=== PATIENT | female | born 1990 | race Caucasian/White ===

== ENCOUNTER 2020-10-17 09:22 | Emergency (ER) | payer OTHER ==
[2020-10-17 10:22] LABS: Absolute Neutrophil Ct (ANC) 0.92 (1.4-6.9); Basophil (Absolute #) 0 (0-0.4); Eosinophil % 0.5 % (0.00-5.0); Eosinophil (Absolute #) 0.01 (0-0.5); Hematocrit 39.7 % (35-47); Hemoglobin 13.1 gm/dl (12.0-16.0); Lymphocyte (Absolute #) 0.75 (1.0-4.6); Lymphocytes % 35.4 % (24.0-44.0); Mean Cell Volume 86.1 fl (78-100); Mean Corpuscular Hemoglobin 28.4 pg (26-32); Mean Platelet Volume 10.5 fl (7.5-11.0); Monocyte (Absolute #) 0.44 (0.0-1.3); Monocytes % 20.8 % (0.0-12.0); Neutrophil % 43.3 % (36.0-66.0); Platelet Count 120 K/mm3 (150-450); Red Blood Count 4.61 M/mm3 (4.1-5.4); Red Cell Distribution Width 13.8 % (11.5-14.0); White Blood Count 2.1 K/mm3 (4.0-10.5)
--- NOTE | 2020-10-17 10:23 | ERPHSYRPT ---
- History of Present Illness Source: patient Exam Limitations: no limitations Patient Subjective Stated Complaint: Cough Triage Nursing Assessment: Patient ambulated back to ED and transferred self to bed. Patient A+O X3. Patient's skin flushed, warm and dry. Patient complains of fever, cough, SOB, bodyaches, headache, Nausea and fatigue for one day. Patient's lung clear a/p rod. Bodyaches constant 5/10 aching pain. Physician History: 30 yo unvaccinated WF w ABAD/cough/coryza/mild ST/borderline fever x 1 day. Covid exposure at work. She denies N/V/D/dysuria/hematuria/. Timing/Duration: yesterday Possible Cause: no prior episodes Modifying Factors: Improves With: coughing Associated Symptoms: fever, cough, headache, nasal congestion, nasal drainage, sore throat, No chills, No chest pain/soreness, No dizziness, No earache, No fac ial pain, No lightheadedness, No muscle aches, No shortness of breath, No sinus infection Allergies/Adverse Reactions: No Known Drug Allergies Allergy (Verified 10/17/ 09:30) Hx Tetanus, Diphtheria Vaccination/Date Given: Yes Hx Influenza Vaccination/Date Given: Yes Hx Pneumococcal Vaccination/Date Given: No Immunizations Up to Date: Yes Travel Risk - International Travel Have you traveled outside of the country in past 3 weeks: No - Coronavirus Screening Are you exhibiting any of the following symptoms?: Yes Symptoms: Fever Close contact with a COVID-19 positive Pt in past 14-21 Days: Yes - Vaccine Status Have you recieved a Covid-19 vaccination: No - Review of Systems Constitutional: No Symptoms, Fever, Chills Eyes: No Symptoms Ears, Nose, & Throat: No Symptoms, Nose Congestion, Nose Discharge Respiratory: No Symptoms, Cough Cardiac: No Symptoms Abdominal/Gastrointestinal: No Symptoms Genitourinary Symptoms: No Symptoms Musculoskeletal: No Symptoms Skin: No Symptoms Neurological: No Symptoms Psychological: No Symptoms Endocrine: No Symptoms Hematologic/Lymphatic: No Symptoms - Past Medical History Pertinent Past Medical History: No Neurological History: No Pertinent History ENT History: No Pertinent History Cardiac History: No Pertinent History Respiratory History: No Pertinent History Endocrine Medical History: No Pertinent History Musculoskeletal History: No Pertinent History GI Medical History: No Pertinent History History: No Pertinent History Psycho-Social History: No Pertinent History Female Reproductive Disorders: No Pertinent History - Past Surgical History Past Surgical History: Yes Neuro Surgical History: No Pertinent History Cardiac: No Pertinent History Respiratory: No Pertinent History Gastrointestinal: No Pertinent History Genitourinary: No Pertinent History Musculoskeletal: No Pertinent History Female Surgical History: Section, Tubal Ligation Other Surgical History: previous c/s - Social History Smoking Status: Never smoker Exposure to second hand smoke: No Drug Use: none Patient Lives Alone: No Significant Family History: no pertinent family hx - Female History Hx Now: No - Nursing Vital Signs Nursing Vital Signs: Initial Vital Signs Temperature 100.3 F 10/17/20 09:30 Pulse Rate 96 H 10/17/20 09:30 Respiratory Rate 18 10/17/20 09:30 Blood Pressure 137/89 10/17/20 09:30 O2 Sat by Pulse Oximetry 98 10/17/20 09:30 Pain Scale Pain Intensity 5 Borderline fever - Physical Exam General Appearance: no apparent distress Eye Exam: PERRL/EOMI, eyes nml inspection, No scleral icterus Ears, Nose, Throat Exam: normal ENT inspection, TMs normal, pharynx normal, moist mucous membranes Neck Exam: normal inspection, non-tender, supple, full range of motion, No meningismus, No mass, No Brudzinski, No Kernig's Respiratory Exam: normal breath sounds, lungs clear, airway intact, No res piratory distress Cardiovascular Exam: regular rate/rhythm, normal heart sounds, normal peripheral pulses, No murmur Gastrointestinal/Abdomen Exam: soft, normal bowel sounds, No tenderness Back Exam: normal inspection, normal range of motion, CVA tenderness Extremity Exam: normal inspection, normal range of motion Neurologic Exam: alert, oriented x 3, cooperative, 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, normal mood/affect, nml station & gait, sensation nml, No motor deficits, No sensory deficit Skin Exam: normal color, warm, dry Lymphatic Exam: No adenopathy SpO2 Interpretation: normal SpO2: 99 O2 Delivery: Room Air - Radiology Exams Chest X-ray Interpretation: Discussed w/ radiologist (CXR neg) Ordered Tests: Active Orders 24 hr Category Date Time Status CHEST 1 VIEW (PORTABLE) Stat Exams 10/17/20 09:52 Completed CBC W DIFF Stat Lab 10/17/20 10:00 Completed CMP Stat Lab 10/17/20 10:00 Completed INFLUENZA A+B THOMAS Stat Lab 10/17/20 10:10 Completed Lactic Acid Stat Lab 10/17/20 09:52 Completed Medication Summary Discontinued Medications Generic Name Dose Route Start Last Admin Trade Name Elizabeth PRN Reason Stop Dose Admin Dexamethasone Sodium Phosphate 10 mg 10/17/20 10:59 10/17/20 11:16 Decadron 10mg Inj. IV 10/17/20 11:00 10 mg STAT ONE Administration Dexamethasone Sodium Phosphate Confirm 10/17/20 11:14 Decadron 10mg Inj. Administered 10/17/20 11:15 Dose 10 mg .ROUTE .STInformed Trades-MED ONE Lab/Rad Data: Laboratory Result Diagrams 10/17/20 10:00 10/17/20 10:00 Laboratory Results 10/17/20 10/17/20 10/17/20 Range/Units 10:10 10:00 10:00 WBC 2.1 L (4.0-10.5) K/mm3 RBC 4.61 (4.1-5.4) M/mm3 Hgb 13.1 (12.0-16.0) gm/dl Hct 39.7 (35-47) % MCV 86.1 (78-100) fl MCH 28.4 (26-32) pg MCHC 33.0 (32-36) g/dl RDW 13.8 (11.5-14.0) % Plt Count 120 L (150-450) K/mm3 MPV 10.5 (7.5-11.0) fl Gran % 43.3 (36.0-66.0) % Eos # (Auto) 0.01 (0-0.5) Absolute Lymphs (auto) 0.75 L (1.0-4.6) Absolute Monos (auto) 0.44 (0.0-1.3) Lymphocytes % 35.4 (24.0-44.0) % Monocytes % 20.8 H (0.0-12.0) % Eosinophils % 0.5 (0.00-5.0) % Basophils % 0.0 (0.0-0.4) % Absolute Granulocytes 0.92 L (1.4-6.9) Basophils # 0 (0-0.4) Sodium 137 (137-145) mmol/L Potassium 3.9 (3.5-5.1) mmol/L Chloride 103 (98-107) mmol/L Carbon Dioxide 22 (22-30) mmol/L Anion Gap 15.7 H (5-15) MEQ/L BUN 6 L (7-17) mg/dL Creatinine 0.77 (0.52-1.04) mg/dL Estimated GFR > 60.0 ML/MIN Glucose 90 (74-106) mg/dL Lactic Acid (0.4-2.0) Calcium 9.1 (8.4-10.2) mg/dL Total Bilirubin 0.50 (0.2-1.3) mg/dL AST 33 (14-36) U/L ALT 22 (0-35) U/L Alkaline Phosphatase 62 (38-126) U/L Serum Total Protein 7.2 (6.3-8.2) g/dL Albumin 4.4 (3.5-5.0) g/dL Influenza Type A Ag NEGATIVE (NEGATIVE) Influenza Type B Ag NEGATIVE (NEGATIVE) Slides for Path Review YES 10/17/20 Range/Units 09:52 WBC (4.0-10.5) K/mm3 RBC (4.1-5.4) M/mm3 Hgb (12.0-16.0) gm/dl Hct (35-47) % MCV (78-100) fl MCH (26-32) pg MCHC (32-36) g/dl RDW (11.5-14.0) % Plt Count (150-450) K/mm3 MPV (7.5-11.0) fl Gran % (36.0-66.0) % Eos # (Auto) (0-0.5) Absolute Lymphs (auto) (1.0-4.6) Absolute Monos (auto) (0.0-1.3) Lymphocytes % (24.0-44.0) % Monocytes % (0.0-12.0) % Eosinophils % (0.00-5.0) % Basophils % (0.0-0.4) % Absolute Granulocytes (1.4-6.9) Basophils # (0-0.4) Sodium (137-145) mmol/L Potassium (3.5-5.1) mmol/L Chloride (98-107) mmol/L Carbon Dioxide (22-30) mmol/L Anion Gap (5-15) MEQ/L BUN (7-17) mg/dL Creatinine (0.52-1.04) mg/dL Estimated GFR ML/MIN Glucose (74-106) mg/dL Lactic Acid 0.8 (0.4-2.0) Calcium (8.4-10.2) mg/dL Total Bilirubin (0.2-1.3) mg/dL AST (14-36) U/L ALT (0-35) U/L Alkaline Phosphatase (38-126) U/L Serum Total Protein (6.3-8.2) g/dL Albumin (3.5-5.0) g/dL Influenza Type A Ag (NEGATIVE) Influenza Type B Ag (NEGATIVE) Slides for Path Review - Progress Progress: improved Counseled pt/family regarding: lab results, diagnosis, need for follow-up, rad results - Departure Departure Disposition: Home Clinical Impression: Viral illness Condition: Stable Critical Care Time: No Referrals: TAN BOSWELL [Primary Care Provider] - Instructions: Cough, Adult (DC) Additional Instructions: Quarantine for 10 days or until CV19 test neg VitaminD 10,000units a day Pepcid 40mg a day [id number] a day Get a pulse oximeter and measure oxygen saturation 2-3 times a day Return to ER for persistent saturation less than 91% CV19 test back in 2-3 days
[2020-10-17 10:26] LABS: ALBUMIN 4.4 g/dL (3.5-5.0); ALKALINE PHOSPHATASE 62 U/L (38-126); ANION GAP 15.7 MEQ/L (5-15); BLOOD UREA NITROGEN 6 mg/dL (7-17); CHLORIDE 103 mmol/L (98-107); Calcium 9.1 mg/dL (8.4-10.2); Carbon Dioxide 22 mmol/L (22-30); Creatinine 1 0.77 mg/dL (0.52-1.04); EST GLOMERULAR FILTRATION RATE > 60.0 ML/MIN; Glucose 90 mg/dL (74-106); Potassium 3.9 mmol/L (3.5-5.1); SGOT/AST 33 U/L (14-36); SGPT/ALT 22 U/L (0-35); SODIUM 137 mmol/L (137-145); Total Protein 7.2 g/dL (6.3-8.2)
--- NOTE | 2020-10-17 10:32 | XRAY ---
Indication: Cough, headache, weakness, and short of breath. Comparison: None Portable chest demonstrates normal heart, lungs, and bony thorax with incidental bilateral breast implants.
[2020-10-17 10:45] LABS: INFLUENZA A NEGATIVE (NEGATIVE); INFLUENZA B NEGATIVE (NEGATIVE)
[2020-10-17] MEDS ORDERED: DECADRON 10MG INJ. IV ONE (10:59)
[2020-10-17] MEDS ORDERED: DECADRON 10MG INJ. ONE (11:14)
[2020-10-17 11:25] VITALS: BP 126/84; PULSE 89
[2020-10-17 14:08] LABS: Slide Review 1 YES
[2020-10-17 20:06] VITALS: O2SAT 99
== END 2020-10-17 11:43 | disposition home or self-care (01) ==
LOC: ED 09:22
DX: B34.9 Viral infection, unspecified (principal); R05 Cough; R50.9 Fever, unspecified; M79.18 Myalgia, other site; R51.9 Headache, unspecified
CPT/HCPCS: 36000; 36415; 71045; 80053; 83605; 85025; 87400; 96374; 99284; U0003; J1100